=== PATIENT | male | born 1960 | race Caucasian/White ===

== ENCOUNTER 2017-04-25 07:56 | Emergency (ER) | payer OTHER ==
[~2017-04-25] VITALS: Ht 172.7 cm; Wt 65.8 kg
[~2017-04-25 07:56] MED LIST: CYCLOBENZAPRINE5 MG PO; FLEXERIL PO; IBUPROFEN 200200 M1 PO; IBUPROFEN 800800 M1 PO; IBUPROFEN 800800 MG PO; MOBIC15 MG PO; NAPROSYN500 MG PO; NORCO 5-325 TA1 EACH PO; NORFLEX100 MG PO
[2017-04-25 07:59] VITALS: BP 122/83
[2017-04-25] MEDS ORDERED: PENICILLIN VK500 M1 PO (08:32)
[2017-04-25] MEDS ORDERED: NAPROSYN500 MG PO (08:32)
== END 2017-04-25 08:56 | disposition home or self-care (01) ==
LOC: ER 07:56
DX: K08.89 Other specified disorders of teeth and supporting structures (principal); F17.210 Nicotine dependence, cigarettes, uncomplicated; G89.29 Other chronic pain